=== PATIENT | female | born 1965 | race African-American/Black ===

== ENCOUNTER 2020-07-03 11:04 | Emergency (ER) | payer OTHER ==
[2020-07-03 11:21] VITALS: BP 152/86; PULSE 103; TEMP 98.9; BMI 28.3
== END 2020-07-03 12:29 | disposition home or self-care (01) ==
LOC: JER 11:04
DX: R05 Cough (principal)
CPT/HCPCS: 87804; 99283-25; C9803; U0003

== ENCOUNTER 2023-08-04 08:59 | Emergency (ER) | payer OTHER ==
[2023-08-04 09:21] VITALS: BP 149/84; PULSE 95; RESP 16; TEMP 98.4; BMI 30.9
== END 2023-08-04 11:56 | disposition home or self-care (01) ==
LOC: JERFT 08:59
DX: M79.662 Pain in left lower leg (principal); M79.652 Pain in left thigh; X50.0XXA Overexertion from strenuous movement or load, initial encounter; Y93.01 Activity, walking, marching and hiking
CPT/HCPCS: 93971-TC; 99284-25

== ENCOUNTER 2023-10-13 10:01 | Emergency (ER) | payer OTHER ==
[2023-10-13 10:12] VITALS: BP 128/78; PULSE 114; RESP 20; TEMP 98.2; BMI 30.5
[2023-10-13] MEDS ORDERED: KETOROLAC TROMETHAMINE 30 MG/1 ML VIAL ONE (13:14)
[2023-10-13] MEDS: KETOROLAC TROMETHAMINE 30 MG/1 ML VIAL IM ONE (13:21)
[2023-10-13] MEDS ORDERED: IBUPROFEN 600 MG TABLET (FP) PO ONE (13:32)
== END 2023-10-13 17:43 | disposition home or self-care (01) ==
LOC: JERFT 10:01
PROC: 3E0233Z Introduction of Anti-inflammatory into Muscle, Percutaneous Approach (ICD-10-PCS; principal; 2023-10-13)
DX: M79.605 Pain in left leg (principal)
CPT/HCPCS: 73564-TC-LT-FY; 93971-TC; 99284-25